=== PATIENT | female | born 1995 ===

== ENCOUNTER 2023-06-09 01:54 | Day surgery (SDC) | payer BC ==
[2023-06-09 02:17] VITALS: BMI 28.8
[2023-06-09] MEDS ORDERED: Metoclopramide HCl 10 MG/2 ML VIAL IVP SCH (02:45)
[2023-06-09] MEDS ORDERED: Lactated Ringer's 1,000 ML IV SCH (02:45)
[2023-06-09 03:04] LABS: #Eosinphils 0.1 10x3/uL (0.0-0.5); #Monocytes 0.6 10x3/uL (0.0-1.1); #Neutrophils 8.7 10x3/uL (1.5-8.4); %Basophils 0.3 % (0.0-2.0); %Eosinophils 0.8 % (0.0-6.0); %Monocytes 5.3 % (0.0-10.0); %Neutrophils 82.9 % (40.0-75.0); Hemoglobin 12.7 g/dL (12.0-15.5); Mean Corpuscular HGB CONC 35.3 g/dL (32.0-36.0); Mean Corpuscular Hemoglobin 31.6 pg (27.0-33.0); Mean Corpuscular Volume 89.6 fl (81.6-98.3); Mean Platelet Volume 10.3 fl (7.4-10.4); Platelet Count 193 10x3/uL (150-450); RBC Distribution Width 12.2 % (11.5-14.5); Red Blood Cell (RBC) Count 4.02 10x6/uL (3.90-5.03); White Blood Cell (WBC) Count 10.5 10x3/uL (3.5-10.5)
[2023-06-09 03:17] LABS: ALT (SGPT) 9 U/L (8-55); AST (SGOT) 16 U/L (5-34); Albumin 3.5 g/dL (3.5-5.0); Alkaline Phosphatase 130 U/L (40-110); Anion Gap 14 mmol/L (10-20); BUN (Urea Nitrogen) 6 mg/dL (7.0-18.7); Bilirubin, Total 0.3 mg/dL (0.2-1.2); Calc. Creatinine Clearance 164 mL/min (70-130); Calcium 8.9 mg/dL (7.8-10.44); Carbon Dioxide 19 mmol/L (22-29); Chloride 110 mmol/L (98-107); Estimated GFR 126; Glucose 97 mg/dL (70-105); Potassium 3.3 mmol/L (3.5-5.1); Protein, Total 6.5 g/dL (6.0-8.3); Sodium 140 mmol/L (136-145)
== END 2023-06-09 04:00 | disposition home or self-care (01) ==
LOC: CSHLD/OP 01:54
PROVIDERS: ATTEND Obstetrics & Gynecology
DX: O99.353 Diseases of the nervous system complicating pregnancy, third trimester (principal); R42 Dizziness and giddiness; O99.891 Other specified diseases and conditions complicating pregnancy; R11.0 Nausea; Z3A.34 34 weeks gestation of pregnancy
CPT/HCPCS: 36415; 80053; 85025; 96360; 96375; 99283; J2765